=== PATIENT | female | born 1990 | race Caucasian/White ===

== ENCOUNTER 2019-04-30 11:00 | Outpatient (CLI) | payer BC, SELFPAY ==
--- NOTE | 2019-04-30 | ECG_ITS ---
Measurements Intervals Mayer Rate: 76 P: 16 OK: 134 QRS: 45 QRSD: 92 T: 3 QT: 357 QTc: 402 Interpretive Statements SINUS RHYTHM BASELINE ARTIFACT- III NORMAL ECG Electronically Signed On 04-30-2019 12:39:09 PROFILE TRIMMER by William Valdovinos D.O.
--- NOTE | ~2019-04-30 | XR_ITS ---
EXAMINATION: XR chest 2V EXAM DATE: 04/30/2019 12:37 INDICATION: Preoperative for bariatric surgery. TECHNIQUE: Frontal and lateral projections of the chest obtained and reviewed. There is no prior peter dy for comparison. FINDINGS: The lungs are clear. There are no pleural effusions. The cardiomediastinal silhouette is within normal limits. There is no pneumothorax suspected. The bones and soft tissues are unremarkab le. IMPRESSION: Unremarkable chest x-ray exam. No evidence of hiatal hernia. Reviewed, dictated and finalized at location A. [employer]
[2019-04-30 12:07] LABS: Basophils Absolute Auto 0.1 K/mm3 (0.0-0.1); Basophils Percent Auto 0.9 % (0.2-1.2); Eosinophils Absolute Auto 0.3 K/mm3 (0-0.3); Eosinophils Percent Auto 3.2 % (0-4.4); Hematocrit 43.7 % (37.0-47.0); Immature Granulocyte Absolute 0.02 K/mm3 (0.00-0.031); Immature Granulocyte Percent A 0.2 % (0-0.5); Lymphocytes Percent Auto 30.9 % (18.3-44.2); Mean Corpuscular Hemoglobin 27.6 pg (26-34); Monocytes Absolute Auto 0.5 K/mm3 (0.1-0.6); Monocytes Percent Auto 5.1 % (2.6-8.5); Neutrophils Absolute Auto 5.2 K/mm3 (1.3-6.7); Neutrophils Percent Auto 59.7 % (45.5-73.1); Platelet Count Result 293 k/mm3 (150-375); Red Blood Count 5.08 M/mm3 (4.2-5.4); Red Cell Distribution Width 13.2 % (11.5-14.5); White Blood Count 8.8 K/mm3 (4.5-10.0)
[2019-04-30 12:16] LABS: Prothrombin Time 12.7 Seconds (11.1-14.7)
[2019-04-30 12:20] LABS: Alanine Aminotransferase 17 U/L (4-35); Albumin Level 4.4 g/dL (3.5-5.1); Alkaline Phosphatase 91 U/L (38-126); Aspartate Amino Transferase 17 U/L (14-36); Bilirubin,Total 0.2 mg/dL (0.2-1.3); Blood Urea Nitrogen 17 mg/dL (7-17); Calcium 9.7 mg/dL (8.4-10.2); Carbon Dioxide 28 mmol/L (22-30); Chloride 99 mmol/L (98-107); Cholesterol 171 mg/dL (0-200); Estimated Glomerular Filt Rate > 60; Glucose 91 mg/dL (65-105); HDL Direct 38 mg/dL; Potassium 4.6 mmol/L (3.4-5.0); Sodium 140 mmol/L (137-145); Triglycerides 119 mg/dL (<150)
[2019-04-30 12:32] LABS: LDL Cholesterol Direct 109 mg/dL
[2019-04-30 12:51] LABS: Thyroid Stimulating Hormone 0.117 uIU/mL (0.465-4.680)
[2019-04-30 12:52] LABS: Parathyroid Intact 8.3 pg/mL (7.5-53.5)
[2019-04-30 13:27] LABS: Iron 60 ug/dL (37-170); Percent Iron Saturation 19 % (20-50); Vitamin D 25 Hydroxy 29.2 ng/mL
[2019-04-30 13:37] LABS: Hemoglobin A1C 5.3 % (<5.7)
[2019-04-30 13:42] LABS: Folic Acid > 20.0 ng/mL (2.76->20)
[2019-05-03 10:39] LABS: Vitamin B1 11 nmol/L (8-30)
== END 2019-04-30 11:01 | disposition home or self-care (01) ==
DX: Z01.818 Encounter for other preprocedural examination (principal)
CPT/HCPCS: 36415; 71046; 80053; 80061; 82306; 82607; 82728; 82746; 83036; 83540; 83550; 83735; 83970; 84425; 84443; 85025; 85610; 93005

== ENCOUNTER 2022-05-23 09:56 | Emergency (ER) | payer BC, SELFPAY ==
--- NOTE | 2022-05-23 09:59 | ED.URI ---
HPI - URI/Sore Throat General Chief Complaint: Upper Respiratory Infection Stated Complaint: sore throat Time Seen by Provider: 05/23/22 09:59 Source: patient and RN notes reviewed History of Present Illness HPI Narrative: Patient is a 31-year-old female who presents to urgent care with complaints of sore throat and left otalgia. Patient states that it started last night. Denies any fevers, nausea, vomiting, runny nose or other upper respiratory complaints. Patient has not taken anything [id number] for her symptoms. Denies any ill exposures. Patient is also wanting a refill of her Acyclovir for cold sores. Patient states that they showed up on her nose a few days ago and she is out of her medication and unable to get a hold of her primary. No other acute complaints. No acute distress noted. Patient aware of the plan of care. Some parts of this dictation were generated by voice recognition software and may contain typographical and/or grammatical inaccuracies. Related Data Allergies Allergy/AdvReac Type Severity Reaction Status Date / Time No Known Allergies Allergy Verified 05/23/22 10:06 Review of Systems Review of Systems: CONSTITUTIONAL: Denies fever, chills, or sweats. EYES: Denies visual changes, redness, or discharge. ENT: Denies rhinorrhea, congestion. Reports of a sore throat and left otalgia. Also reports of cold sores on the nose CARDIOVASCULAR: Denies chest pain, palpitations, or edema. RESPIRATORY: Denies cough or dyspnea. GASTROINTESTINAL: Denies abdominal pain, nausea, vomiting, or diarrhea. GENITOURINARY: Denies dysuria or hematuria. SKIN: Denies rash or itching. MUSCULOSKELETAL: Denies back pain, joint pain, or myalgia. NEUROLOGIC: Denies headache, numbness, or weakness. All other systems reviewed are negative, except as documented in HPI. PMFSH Comments At the time of my signature, I reviewed and agree with the nursing past medical, surgical, social, and family history. There is no relevant family history pertinent to the patient complaint. Exam Narrative: GENERAL: This is a well-nourished, well-developed patient, in no apparent distress. HEAD: normocephalic, atraumatic. EYES: PERRL. Sclera clear/white. Vision is grossly intact. EARS: External ears normal, auditory canals clear and without drainage, TMs normal without perforation. Hearing grossly intact. NOSE: External nose normal with no obvious nasal discharge, nares without redness, no rhinorrhea. 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 Breath sounds equal bilaterally. No wheezes, rales, or rhonchi. SKIN: warm, intact with no suspicious lesions or rash, good texture and turgor. NEURO: awake, alert, and oriented to person, place and time. There were no obvious focal neurologic abnormalities. EXTREMITIES: No clubbing, cyanosis, or edema. Course Course Level of Care: Express Care Visit Vital Signs Vital signs: Vital Signs Temperature 98.6 F 05/23/22 10:00 Pulse Rate 79 05/23/22 10:00 Respiratory Rate 16 05/23/22 10:00 Blood Pressure 116/69 05/23/22 10:00 Pulse Oximetry 100 05/23/22 10:00 Oxygen Delivery Room Air 05/23/22 10:00 Temperature 98.6 F 05/23/22 10:07 Pulse Rate 79 05/23/22 10:07 Respiratory Rate 16 05/23/22 10:07 Blood Pressure 116/69 05/23/22 10:07 Pulse Oximetry 100 05/23/22 10:07 Oxygen Delivery Room Air 05/23/22 10:07 Reviewed MDM - URI/Sore Throat MDM Narrative Medical decision making narrative: Reviewed lab results with patient. She is aware that strep swab was negative. Educated patient on culture we will call within 72 hours if culture is positive antibiotics are necessary. Advised patient to use a daily antihistamine such as Claritin or Zyrtec for symptom relief. May use Flonase nasal s
[2022-05-23 10:00] VITALS: BP 116/69; PULSE 79; RESP 16; TEMP 37; O2SAT 100
[2022-05-23 10:07] VITALS: BP 116/69; PULSE 79; RESP 16; TEMP 37; O2SAT 100
== END 2022-05-23 10:29 | disposition home or self-care (01) ==
PROVIDERS: Emergency Provider Nurse Practitioner Family
DX: B00.1 Herpesviral vesicular dermatitis (principal); J02.9 Acute pharyngitis, unspecified
CPT/HCPCS: 87081; 87880; 99203; G0463